=== PATIENT | male | born 2000 | race Caucasian/White ===

== ENCOUNTER 2020-10-29 21:56 | Emergency (ER) | payer OTHER ==
[2020-10-29] MEDS ORDERED: ACETAMINOPHEN 500 MG TABLET ONE (23:42)
[2020-10-29] MEDS ORDERED: HYOSCYAMINE SULFATE 0.125 MG TAB.SUBL SL ONE (23:42)
[2020-10-29] MEDS ORDERED: IBUPROFEN 600 MG TABLET ONE (23:42)
== END 2020-10-30 00:26 | disposition home or self-care (01) ==
LOC: EDH 21:56
DX: B34.9 Viral infection, unspecified (principal); R19.7 Diarrhea, unspecified; R42 Dizziness and giddiness; R51.9 Headache, unspecified; Z20.822 Contact with and (suspected) exposure to COVID-19
CPT/HCPCS: 87426; 87804 ×2; 99284; U0003